=== PATIENT | female | born 1955 | race Caucasian/White ===

== ENCOUNTER 2019-04-25 16:48 | Emergency (ER) | payer BC ==
--- OUTSIDE RECORDS SUMMARY | 2019-04-25 17:04 | XMS REPORT | Continuity of Care Document ---
:1955 External Reference #:[id number] Author Name Dusty Beltran MD Address [address] [place] [address] Care Team Providers Name Role Phone Neva Mccarty MD - Internal Care Team Information Acute Care Assistant [phone] Medicine Zane Campbell OD Care Team Information Acute Care Assistant [phone] Problems Active Problems Provider Date Chronic osteoarthritis Dusty Beltran MD Onset: 03/30/2019 Allergic rhinitis Dusty Beltran MD Onset: 03/30/2019 Social History Type Date Description Comments Sex Unknown ETOH Use Currently consumes alcohol Tobacco Use Start: Unknown Patient has never smoked Smoking Status Reviewed: 03/30/19 Patient has never smoked Allergies, Adverse Reactions, Alerts Active Allergies Reaction Severity Comments Date Sulfa Antibiotics 04/02/2018 Cardizem 04/02/2018 Medications Active Medications SIG Qnty Indications Ordering Provider Date Sotalol HCL Asher Lozano 80mg Tablets Levothyroxine Sodium Take One Tablet Unknown 50mcg By Mouth Once Tablets Daily Omeprazole Nati, 20mg Capsules DR Vera AMARO Noritate Apply To Face Unknown 1% Cream Once Daily Metoprolol Succinate ER Take 1 Tablet Unknown 50mg By Mouth Every Tablets ER 24HR Day Isosorbide Mononitrate Unknown ER 30mg Tablets ER 24HR Clopidogrel Bisulfate Unknown 75mg Tablets Alprazolam Neva Mccarty MD 0.25mg Tablets Valacyclovir HCL Sandy Gonzalez MD 500mg Tablets Trimethoprim Unknown Powder EliquAsher Herrmann 5mg Tablets Spironolactone Asher Lozano 25mg Tablets Immunizations Description No Information Available Vital Signs Date Vital Result Comment 03/30/2019 1:37pm Intraocular Pressure Right Eye 14 mmHg Tp Intraocular Pressure Left Eye 14 mmHg Tp 01:37 PM 04/02/2018 11:45am Intraocular Pressure Right Eye 13 mmHg Ap 11:45 Am Intraocular Pressure Left Eye 13 mmHg Ap Results Description No Information Available Procedures Description No Information Available Medical Devices Description No Information Available Encounters Description No Information Available Assessments Date Code Description Provider 03/30/2019 H40.033 Anatomical narrow angle, bilateral Dusty Beltran MD 03/30/2019 H25.13 Age-related nuclear cataract, bilateral Dusty Beltran MD Plan of Treatment Future Appointment(s):04/11/2020 10:15 am - Dusty Beltran MD at [id number] - Dusty Beltran MDH40.033 Anatomical narrow angle, [id number] Age-related nuclear cataract, bilateralFollow up:[facility] 1 year dilated exam Functional Status Description No Information Available Mental Status Description No Information Available Referrals Description No Information Available
[2019-04-25 17:27] VITALS: BP 125/66
--- NOTE | 2019-04-25 18:03 | UC ---
Throat Pain/Nasal Nick HPI - HPI Summary HPI Summary: 63-year-old female presents with complaints of 5-6 days of nasal congestion, runny nose, clear nasal discharge, and a dry nonproductive cough. 4 days ago she also developed a sore throat. Without has history of reactive airway disease with URIs and has been using her albuterol inhaler for occasional wheezing with good relief. Denies fever, chills, ear pain, dysphagia, chest pain, palpitations, edema, abdominal pain, nausea, or vomiting. - History of Current Complaint Chief Complaint: UCGeneralIllness Stated Complaint: THROAT PAIN Time Seen by Provider: 04/25/19 17:24 Hx Obtained From: Patient Pain Intensity: 10 - Allergies/Home Medications Allergies/Adverse Reactions: Allergies Allergy/AdvReac Type Severity Reaction Status Date / Time diltiazem [From Cardizem] Allergy Hives Verified 04/25/19 17:07 Sulfa (Sulfonamide Allergy coma Verified 04/25/19 17:07 Antibiotics) Home Medications: Home Medications Amoxicillin PO (*) [Amoxicillin 500 MG CAP*] 2,000 mg PO SEE INSTRUCTIONS [History Confirmed 04/25/19] Apixaban* [Eliquis*] 5 mg PO BID 04/25/19 [History Confirmed 04/25/19] Benzonatate CAP* [Tessalon 100 MG CAP*] 100 mg PO TID PRN 04/25/19 [History Confirmed 04/25/19] Furosemide 40 mg PO EVERY OTHER DAY 04/25/19 [History Confirmed 04/25/19] Guaifenesin/Pseudoephedrne HCl [Mucinex D ER 600-60 mg Tablet] 1 each PO BID PRN 04/25/19 [History Confirmed 04/25/19] Loratadine 10 mg PO DAILY PRN 04/25/19 [History Confirmed 04/25/19] Magnesium Oxide [Magnesium] 250 mg PO DAILY 04/25/19 [History Confirmed 04/25/19 ] Metoprolol Succinate [Metoprolol Succinate ER] 12.5 mg PO BID 04/25/19 [History Confirmed 04/25/19] Mometasone/Formoter 200/5 MDI* [Dulera 200/5 MDI*] 1 puff INH BID PRN 04/25/19 [ History Confirmed 04/25/19] Nitrofurantoin Monohyd/M-Cryst [Macrobid 100 mg Capsule] 100 mg PO DAILY PRN [History Confirmed 04/25/19] Sotalol TAB* [Betapace 80 MG TAB*] 80 mg PO BID 04/25/19 [History Confirmed ] Spironolactone TAB* [Aldactone TAB*] 25 mg PO EVERY OTHER DAY 04/25/19 [History Confirmed 04/25/19] ValACYclovir (*) [Valtrex 500 mg (*)] 500 mg PO DAILY 04/25/19 [History Confirmed 04/25/19] PMH/Surg Hx/FS Hx/Imm Hx Endocrine History: Hypothyroidism Cardiovascular History: Cardiac Disease, Hypertension, Myocardial Infarction, Atrial Fibrillation Respiratory History: Other - RAD GI/ History: Gastroesophageal Reflux - Surgical History Surgical History: Yes Surgery Procedure, Year, and Place: x2 , Hysterectomy, gallbladder removed, CABG, [place], x2 ablations. Stents, and several cath's. B/L knee replacements - Family History Known Family History: Positive: Non-Contributory - Social History Occupation: Retired Lives: With Family Alcohol Use: Daily Substance Use Type: None Smoking Status (MU): Never Smoked Tobacco Review of Systems All Other Systems Reviewed And Are Negative: Yes Constitutional: Negative: Fever, Chills Skin: Negative: Rash Eyes: Negative: Drainage, Eye Redness ENT: Positive: Sore Throat, Nasal Discharge, Sinus Congestion. Negative: Ear Ache, Sinus Pain/Tenderness Respiratory: Positive: Cough. Negative: Shortness Of Breath Cardiovascular: Negative: Palpitations, Chest Pain, Other - edema Gastrointestinal: Negative: Abdominal Pain, Vomiting, Diarrhea, Nausea Genitourinary: Positive: Negative Musculoskeletal: Positive: Negative Neurological: Positive: Negative Is Patient Immunocompromised?: No Physical Exam - Summary Physical Exam Summary: GENERAL APPEARANCE: Alert and cooperative adult female who appears to be in no acute distress. EYES: Conjunctiva clear. No drainage. EARS: External auditory canals and tympanic membranes clear, hearing grossly intact. NOSE: Moderate nasal congestion. No nasal discharge. THROAT: Pharyngeal cobblestoning with post-nasal drip. No tonsilar inflammation , swelling, exudate, or lesions. Uvula midline. NECK: Neck supple, non-tender without lymphadenopathy. CARDIAC: Normal S1 and S2. No S3, S4 or murmurs. Rhythm is regular. There is no peripheral edema, cyanosis or pallor. Extremities are warm and well perfused. Capillary refill is less than 2 seconds. Peripheral pulses intact. LUNGS: Clear to auscultation without rales, rhonchi, wheezing or diminished breath sounds. Dry, non-productive cough. ABDOMEN: Positive bowel sounds. Soft, nondistended, nontender. No guarding or rebound. No masses or hepatosplenomegally. MUSKULOSKELETAL: ROM intact to all extremities. No joint erythema or tenderness. Normal muscular development. Normal gait. SKIN: Skin normal color, texture and turgor with no lesions or eruptions. Triage Information Reviewed: Yes Vital Signs: Initial Vital Signs Temp 97.9 F 04/25/19 17:24 Pulse 65 04/25/19 17:24 Resp 24 04/25/19 17:24 BP 125/66 04/25/19 17:24 Pulse Ox 97 04/25/19 17:24 Vital Signs Reviewed: Yes Throat Pain/Nasal Course/Dx - Course Course Of Treatment: 63-year-old female presents with complaints of 5-6 days of nasal congestion, runny nose, clear nasal discharge, and a dry nonproductive cough. 4 days ago she also developed a sore throat. Without has history of reactive airway disease with URIs and has been using her albuterol inhaler for occasional wheezing with good relief. Denies fever, chills, ear pain, dysphagia, chest pain, palpitations, edema, abdominal pain, nausea, or vomiting. Afebrile. Vital signs stable. Patient had moderate nasal congestion, pharyngeal cobblestoning with postnasal drip, no tonsillar swelling or exudate, no cervical lymphadenopathy, clear bilateral breath sounds, dry nonproductive cough , and otherwise unremarkable exam. Rapid strep test was negative. Discussed with the patient that her symptoms are likely from a viral upper respiratory infection and I'm recommending continued symptomatic treatment at this time. Patient had already contacted her primary care provider who had sent him prescriptions for Tessalon Perles and albuterol inhaler and I have encouraged her to continue to use these. She is to follow-up with her primary care provider in 3 days if symptoms are not improving. Anticipatory guidance and warning symptoms reviewed with the patient. Verbalizes understanding and agrees with plan of care. - Differential Dx/Diagnosis Differential Diagnosis/HQI/PQRI: Mononucleosis, Pharyngitis, Sinusitis, Tonsillitis, URI Provider Diagnosis: Viral URI with cough Discharge ED - Sign-Out/Discharge Documenting (check all that apply): Patient Departure All imaging exams completed and their final reports reviewed: No Studies - Discharge Plan Condition: Stable Disposition: HOME Patient Education Materials: Upper Respiratory Infection (ED) Referrals: Neva Mccarty MD [Primary Care Provider] - 3 Days Additional Instructions: The rapid strep test performed in the clinic today was negative. Your history and exam are consistent with a viral upper respiratory infection. Viral infections do not respond to antibiotics and are limited to the treatment of symptoms. Viral infections typically run their course in 7-10 days but may last up to 2 weeks. Drink plenty of fluids to avoid dehydration especially if you are running any fever. Use a saline rinse kit such as Neti Pot or NeilMed at least twice a day to help thin secretions and promote drainage of the sinuses. Use fluticasone (Flonase) nasal spray 2 sprays each nostril once daily. Continue to use the Tessalon Perles that were prescribed by your primary care provider as directed. Use your albuterol inhaler as directed for any shortness of breath or wheezing. Take over the counter acetaminophen (Tylenol) or ibuprofen (Advil, Motrin) according to directions as needed for pain or fever. Use salt water gargles several times a day if you have a sore throat. You may also use Chloraseptic spray or Cepacol lonzenges according to directions which contain a numbing medication and can provide some temporary relief from your sore throat. Follow up with your primary care provider in 3 days if symptoms persist. Seek immediate medical attention in the emergency room if you have fever greater than 100.5 F despite taking acetaminophen or ibuprofen, have chest pain , difficulty breathing, are unable to swallow, or have any worsening of symptoms. - Billing Disposition and Condition Condition: STABLE Disposition: Home
== END 2019-04-25 18:17 | disposition home or self-care (01) ==
LOC: UCCORT 16:48
DX: J06.9 Acute upper respiratory infection, unspecified (principal); I25.2 Old myocardial infarction; Z88.2 Allergy status to sulfonamides; I10 Essential (primary) hypertension; I48.91 Unspecified atrial fibrillation; J45.909 Unspecified asthma, uncomplicated
CPT/HCPCS: 87651; 99202; G0463